=== PATIENT | male | born 1980 | race Caucasian/White ===

== ENCOUNTER 2019-06-12 15:38 | Emergency (ER) | payer BC, SELFPAY ==
[2019-06-12 15:51] VITALS: BP 132/84; PULSE 68; RESP 18; TEMP 37.2; O2SAT 100
--- NOTE | 2019-06-12 16:01 | PC.NURSE ---
jama lamp exam per Ana OUTPATIENT DIETITIAN Tetracaine, flouascene and eye wash administered ny Ana OUTPATIENT DIETITIAN
--- NOTE | 2019-06-12 16:14 | ED.EYEPROB ---
HPI - Eye Problem General Chief complaint: Eye Problems Stated complaint: Left Eye Pain Time Seen by Provider: 06/12/19 16:00 Source: patient Mode of arrival: ambulatory Limitations: no limitations History of Present Illness HPI Narrative: Jacobo Fleming is 38 yo male with no PMH who comes to the [facility] with left eye pain after trying to load scrap wood this morning. He was seen at [place] [facility], stated he thought that there was something left in the eye, here for reevaluation Related Data Allergies Allergy/AdvReac Type Severity Reaction Status Date / Time No Known Allergies Allergy Verified 06/12/19 15:43 Review of Systems Review of Systems: Narrative: CONSTITUTIONAL: Denies fever, chills, sweats. EYES: Denies visual changes, redness, pain in left eye ENT: Denies rhinorrhea, congestion, sore throat, otalgia. CARDIOVASCULAR: Denies chest pain, palpitations, edema. RESPIRATORY: Denies dyspnea, wheezing, cough GASTROINTESTINAL: Denies abdominal pain, nausea, vomiting, diarrhea. GENITOURINARY: Denies dysuria, hematuria, abnormal discharge SKIN: Denies rash or itching. NEUROLOGIC: Denies numbness, or focal weakness. PSYCHIATRIC: Denies anxiety or depression. PMFSH Past Medical History Medical History Anxiety Shoulder fracture, left Surgical History Surgical History History of surgical removal of ganglion cyst Family History Family History Father Hypertension Family history of diabetes mellitus in first degree relative Family history of coronary artery disease Grandparent Family history of lung cancer Other Diabetes mellitus Social History Social History Smoking status: Never smoker Alcohol intake: current Gender identity (if verbalized by the patient): Male Comments At time of signature, I agree with nursing past medical, surgical, social and family history. There is no relevant family history pertinent to the presenting complaint. Exam Narrative: Exam Narrative: GENERAL: This is a well-nourished, well-developed patient, in moderate distress. HEAD: normocephalic, atraumatic. EYES: PERRL. Sclera clear/whiteon R, injected on R. Vision is grossly intact. EARS: External ears normal,. Hearing grossly intact. NOSE: External nose normal THROAT: Mucous membranes moist, posterior pharynx clear. NECK: Neck supple, CARDIOVASCULAR: Regular rate and rhythm without murmurs, gallops, or rubs. RESPIRATORY: Clear to auscultation. Breath sounds equal bilaterally. No wheezes, rales, or rhonchi. GASTROINTESTINAL: Abdomen soft, SKIN: warm, intact with no suspicious lesions or rash, good texture and turgor. NEURO: awake, alert, and oriented to person, place and time. There were no obvious focal neurologic abnormalities. Steady gait EXTREMITIES: Normal range of motion. No edema. BACK: Nontender without deformity or crepitance. Course Vital Signs Vital signs: Vital Signs Temperature 98.9 F 06/12/19 15:51 Pulse Rate 68 06/12/19 15:51 Respiratory Rate 18 06/12/19 15:51 Blood Pressure 132/84 06/12/19 15:51 Pulse Oximetry 100 06/12/19 15:51 Temperature 98.9 F 06/12/19 15:51 Pulse Rate 68 06/12/19 15:51 Respiratory Rate 18 06/12/19 15:51 Blood Pressure 132/84 06/12/19 15:51 Pulse Oximetry 100 06/12/19 15:51 Procedures FB Removal Eye Foreign Body #1: Foreign Body Removal Date: 06/12/19 Foreign Body Removal Time: 16:18 Time Out performed: No Location: eye (L) Topical anesthetic used: tetracaine Foreign body: wood Evidence of corneal penetration: No Technique: irrigation, eye wash bottle and cotton tip swab Procedure performed under: direct visualization with magnification Post-pro
== END 2019-06-12 16:28 | disposition home or self-care (01) ==
PROVIDERS: Emergency Provider Nurse Practitioner
DX: S05.02XA Injury of conjunctiva and corneal abrasion without foreign body, left eye, initial encounter (principal); X58.XXXA Exposure to other specified factors, initial encounter
CPT/HCPCS: 99213; A9270; G0463

== ENCOUNTER 2021-09-26 12:48 | Emergency (ER) | payer OTHER, SELFPAY ==
--- NOTE | ~2021-09-26 | CT_ITS ---
EXAMINATION: CT abdomen pelvis w con DATE: 09/26/2021 14:42 INDICATION: bruising over left flank, hx trauma TECHNIQUE: Computed tomography (CT) of the abdomen and pelvis was performed with 100 mL Omnipaque-350 intravenous contrast. Automated exposure control and iterative reconstruction technique were employe d. The dose-length product was 366.19 mGy-cm. COMPARISON: None. FINDINGS: Lower thorax: Unremarkable Liver: Normal. Biliary/Gallbladder: No bile duct dilation. Pancreas: No mass or duct dilation. Spleen: Normal. Adrenals:No mass. Kidneys: No mass, stone, or hydronephrosis. GI tract: No small or large bowel dilation. Normal appendix. Mesentery/Peritoneum: No ascites, mass, or free air. Retroperitoneum: No mass. Pelvis: Partially distended bladder, marked wall thickening. Otherwise the pelvic organs are within n ormal limits. Soft Tissues: Soft tissues and body wall unremarkable. Bones: No acute osseous finding. IMPRESSION: Atraumatic abdomen and pelvis. Bladder wall thickening as can be seen with outlet obstruction and cys titis. No other acute abdominopelvic process detected. Reviewed, dictated and finalized at location K. IMPRESSION: Atraumatic abdomen and pelvis. Bladder wall thickening as can be seen with outl et obstruction and cystitis. No other acute abdominopelvic process detected.
[2021-09-26 12:50] VITALS: BP 171/83; PULSE 83; RESP 16; TEMP 36.8; O2SAT 99
--- NOTE | 2021-09-26 13:07 | ED.BACK ---
HPI - Back Pain/Injury General Chief Complaint: Back Pain/Injury <Irma Curtis PA-C - Last Filed: 09/26/21 18:23> Stated Complaint: back pain <Irma Curtis PA-C - Last Filed: 09/26/21 18:23> Time Seen by Provider: 09/26/21 12:56 <Irma Curtis PA-C - Last Filed: 09/26/21 18:23> History of Present Illness HPI Narrative: Patient is a 40-year-old male here for evaluation of left lower back pain. States that he fell off a pile last week and struck the left side of his flank on the way down. He has reported pain ever since, that has been increasing in severity. Also notes that he has a bruise over his left flank that has developed over the last week. Has been attempting ibuprofen with no relief of his pain. Denies lightheadedness, syncope, abdominal pain, nausea, vomiting, paresthesias in legs, incontinence or retention of bowel or bladder, saddle anesthesia. <Irma Curtis PA-C - Last Filed: 09/26/21 18:23> Related Data Allergies/Adverse Reactions: Allergies Allergy/AdvReac Type Severity Reaction Status Date / Time No Known Allergies Allergy Verified 06/12/19 15:43 <Imra Curtis PA-C - Last Filed: 09/26/21 18:23> Review of Systems Review of Systems: Gen: Denies fevers or chills Eyes: Denies eye pain or visual change ENT: Denies congestion Respiratory: Denies shortness of breath or cough CV: Denies chest pain or palpitations GI: Denies abdominal pain nausea, emesis or diarrhea denies burning, urgency, frequency or hematuria Musculoskeletal: Reports back pain Neuro: Denies numbness, tingling, weakness or focal weakness Skin: Reports bruising over left flank Except as documented, all other systems reviewed and negative <Irma Curtis PA-C - Last Filed: 09/26/21 18:23> [facility] Past Medical History Medical History: Medical History (Updated 09/26/21 @ 15:02 by rIma Curtis PA-C) Anxiety Shoulder fracture, left <Irma Curtis PA-C - Last Filed: 09/26/21 18:23> Surgical History Surgical History: Surgical History History of surgical removal of ganglion cyst <Irma Curtis PA-C - Last Filed: 09/26/21 18:23> Family History Family History: Family History Father Hypertension Family history of diabetes mellitus in first degree relative Family history of coronary artery disease Grandparent Family history of lung cancer Other Diabetes mellitus <Irma Curtis PA-C - Last Filed: 09/26/21 18:23> Social History Social History: Social History Smoking status: Never smoker Alcohol intake: current Gender identity (if verbalized by the patient): Male <Irma Curtis PA-C - Last Filed: 09/26/21 18:23> Exam Narrative: APPEARANCE: Well appearing, no pain in distress, well-nourished. Head: Normocephalic and atraumatic. EYES: PERRLA/EOMI, conjunctivae clear NOSE: No nasal drainage EARS: External ear normal in appearance THROAT: Oropharynx is clear. Mucous membranes are moist. NECK: Supple. No adenopathy, no masses. RESPIRATORY: Airway patent, respirations nonlabored. Clear to auscultation bilaterally, no rales, rhonchi, wheezing. CARDIOVASCULAR: Regular rate and rhythm without murmurs, rubs, or gallops. ABDOMINAL: Normoactive bowel sounds. Soft, nontender, nondistended. No rebound tenderness or guarding. MUSCULOSKELETAL: No midline tenderness along C, T, or L-spine. Straight leg raise negative. Extremities are warm and well-perfused. Moves all extremities well. No edema. NEURO: Normal speech. No focal neurologic deficits. SKIN: Patient has area of pale ecchymosis over left flank forward to anterior abdomen PSYCHIATRIC: Normal affect/mood. <Irma Curtis PA-C - Last Filed: 09/26/21 18:23> C
[2021-09-26] MEDS: ACETAMINOPHEN 500 MG TABLET 1000 MG PO (13:16)
[2021-09-26 13:54] LABS: Basophils Percent Auto 0.6 % (0.2-1.2); Eosinophils Absolute Auto 0.1 K/mm3 (0-0.3); Eosinophils Percent Auto 1.1 % (0-4.4); Hematocrit 41.8 % (42.0-52.0); Immature Granulocyte Absolute 0.04 K/mm3 (0.00-0.031); Immature Granulocyte Percent A 0.9 % (0-0.5); Lymphocytes Absolute Auto 1.18 K/mm3 (0.9-3.2); Lymphocytes Percent Auto 25.5 % (18.3-44.2); Mean Corpuscular HGB Conc 33.5 g/dl (32-36); Mean Corpuscular Hemoglobin 30.8 pg (26-34); Mean Corpuscular Volume 92.1 fl (80-100); Mean Platelet Volume 9.6 fl (7.4-10.4); Monocytes Absolute Auto 0.5 K/mm3 (0.1-0.6); Neutrophils Absolute Auto 2.9 K/mm3 (1.3-6.7); Neutrophils Percent Auto 61.9 % (45.5-73.1); Platelet Count Result 277 k/mm3 (150-375); Red Blood Count 4.54 M/mm3 (4.6-6.20); Red Cell Distribution Width 13.1 % (11.5-14.5); White Blood Count 4.6 K/mm3 (4.5-10.0)
[2021-09-26 14:06] LABS: Alanine Aminotransferase 46 U/L (6-50); Albumin Level 4.7 g/dL (3.5-5.1); Alkaline Phosphatase 77 U/L (38-126); Anion Gap 6 mmol/L (8-16); Aspartate Amino Transferase 36 U/L (17-59); Bilirubin,Total 0.3 mg/dL (0.2-1.3); Blood Urea Nitrogen 12 mg/dL (9-20); Calcium 9.1 mg/dL (8.4-10.2); Carbon Dioxide 29 mmol/L (22-30); Chloride 104 mmol/L (98-107); Estimated CRCL calculation 93 ml/min; Estimated Glomerular Filt Rate > 60; Glucose 92 mg/dL (65-110); Potassium 4.5 mmol/L (3.4-5.0); Sodium 139 mmol/L (137-145)
== END 2021-09-26 15:20 | disposition home or self-care (01) ==
PROVIDERS: Physician Assistant; Emergency Provider Emergency Medicine
DX: S39.012A Strain of muscle, fascia and tendon of lower back, initial encounter (principal); X58.XXXA Exposure to other specified factors, initial encounter
CPT/HCPCS: 36415; 74177; 80053; 85025; 99284; A9270; Q9967

== ENCOUNTER 2022-06-29 13:48 | Emergency (ER) | payer OTHER, SELFPAY ==
[2022-06-29 14:14] VITALS: BP 138/79; PULSE 75; RESP 18; TEMP 36.8; O2SAT 98
--- NOTE | 2022-06-29 14:46 | ED.URI ---
HPI - URI/Sore Throat General Chief Complaint: Upper Respiratory Infection Stated Complaint: throat discomfort Time Seen by Provider: 06/29/22 14:33 Source: patient Mode of arrival: ambulatory Limitations: no limitations History of Present Illness HPI Narrative: Patient is a 41-year-old male who presents with right sided point tenderness neck pain. States worsens with yawning. Denies any pain with moving head left to right or swallowing. States it has been going on for 4 weeks since he started a new exercise regimen. Denies any swelling, redness, palpable masses, changes in voice. Related Data Allergies Allergy/AdvReac Type Severity Reaction Status Date / Time No Known Allergies Allergy Verified 06/29/22 14:33 Review of Systems Review of Systems: All systems reviewed & are unremarkable except as noted in HPI and below Constitutional: Constitutional: Denies body ache(s), Denies fever(s), Denies headache(s), Denies malaise and Denies weakness Eyes: Eyes: Denies loss of vision ENT: Denies otalgia, Denies headache(s), Denies hoarseness, Denies nasal congestion, Reports neck pain, Denies sinus pain and Denies sore throat Cardiovascular: Cardiovascular: Denies chest pain, Denies irregular heart rhythm and Denies dyspnea Respiratory: Respiratory: Denies cough and Denies dyspnea Gastrointestinal: Gastrointestinal: Denies abdominal pain, Denies melena, Denies hematochezia, Denies diarrhea, Denies nausea and Denies vomiting Musculoskeletal: Musculoskeletal: Denies back pain, Denies myalgias and Denies arthralgias Integumentary/Breasts: Skin/Breast: Denies pruritus and Denies rash Neurologic: Denies headache(s), Denies loss of vision and Denies weakness Psychiatric: Psychiatric: Reports no additional psychiatric complaints [facility] Past Medical History Medical History (Updated 06/29/22 @ 14:50 by Dianna Christine APRN) Anxiety Shoulder fracture, left Surgical History Surgical History History of surgical removal of ganglion cyst Family History Family History Father Hypertension Family history of diabetes mellitus in first degree relative Family history of coronary artery disease Grandparent Family history of lung cancer Other Diabetes mellitus Social History Social History Smoking status: Never smoker Alcohol intake: current Gender identity (if verbalized by the patient): Male Comments At time of signature, agree with nursing past medical, surgical, social and family history. There is no relevant family history pertinent to the presenting complaint. Exam Const: General: cooperative, healthy appearing, comfortable, no acute distress and well nourished Nutritional Appearance: well nourished Orientation/consciousness: patient oriented x3 Limitations: no limitations HENMT: Head: normal to inspection, normocephalic and atraumatic Ears: external ears normal and TM's normal bilaterally Face/Nose/Sinus: Normal external nose present, normal facial exam, sinuses nontender and face symmetric Face and sinus: normal facial exam, sinuses nontender and face symmetric Mouth: Yes Normal oral and palatal mucosa present, Yes lip normal and Yes moist mucous membranes Teeth and gingiva: dentition normal Throat: posterior oropharynx normal, tonsils normal and uvula midline Eyes: General: appearance normal, both eyes and all related structures Alignment and Position: alignment normal and position normal Periorbital: periorbital findings normal Eyelids: eyelids normal Pupils: Equal, round and reactive pupils present Neck: Neck: normal visual inspection, full ROM, no lymphadenopathy, trachea midline and supple Thyroid: thyroid normal Neck images: 1. point tenderness on palpation. no palpable masses noted, no swelling, no redness Chest
== END 2022-06-29 14:53 | disposition home or self-care (01) ==
PROVIDERS: Emergency Provider Nurse Practitioner Family
DX: M54.2 Cervicalgia (principal)
CPT/HCPCS: 99213; G0463

== ENCOUNTER 2024-09-08 17:59 | Emergency (ER) | payer OTHER, SELFPAY ==
--- OUTSIDE RECORDS SUMMARY | 2024-09-08 18:03 | XMS_ITS | Encounter Summary ---
Author Organization [facility] Address [address] [place] [address] Care Team Providers Care Software Tools Engineer Name Role Phone Rachel Stevens MD Primary Care Provider [phone] Yon Guallpa MD Primary Care Provider Encounter Details Date Type Department Care Team (Late st Contact Info) Description 07/15/2024 MyChart Message Enc [facility] Family Medicine [facility] [address] [place] [address] Rachel Stevens MD [address] [place] [address] Anxiety Social History Tobacco Use Types Packs/Day Years Used Date Smoking Tobacco: Former Cigarettes 1 5 1 994 - 1998 Passive Smoke Exposure: Past Smokeless Tobacco: Never Alcohol Use Standard Drinks/Week Comments Yes 0 (1 standard drink = 0.6 oz pur e alcohol) 12-24 beers on the weekends PHQ-2 Answer Date Recorded Patient Health Questionnaire-2 Score 0 01/10/2024 Sex and Gender Information Value Date Recorded Sex Assigned at Not on file Legal Sex Male 9:30 PM CDT Gender Identity Not on file Sexual Orientation Not on file documented as of this encounter Plan of Treatment Upcoming Encounters Date Type Department Care Team (Late Contact Info) Description 12/15/2024 7:00 AM CDT Office Visit [facility] Family & Internal Medicine [address] [address] Yon Guallpa MD [address] [place], [place] [address] [place] [address] documented as of this encounter Visit Diagnoses Not on filedocumented in this encounter Additional Health Concerns Assessment Noted Time PHQ-9 Depression Total Score: 2 12/11/19 24 8:13 AM CDT documented as of this encounter Care Teams Software Tools Engineer Relationship Specialty Start Date End Date Rachel Stevens MD [address] [place] [address] PCP - General FAMILY PRACTICE 12/11/23 08/06/24 [place] [address] [employer] [address] [place] [address] PCP - General INTERNAL MEDICINE 08/07/24 documented as of this encounter
--- OUTSIDE RECORDS SUMMARY | 2024-09-08 18:03 | XMS_ITS | Clinical Summary ---
Author Organization [facility] Address [address] [place] [address] Care Team Providers Care Ambulance Driver Name Role Phone Unavailable Primary Care Provider Unavailabl e Source Comments [facility] [employer],non-owned Affiliates and Associated Physician Practices is amultiple site organization consisting of ambulatory clinics and hospital sitesin [place], [place], [place] and [place]. This disclosure is being madepursuant to the Care Everywhere program and may not contain all information available regarding this patient. Last updated 17.[facility] [employer] Social History Tobacco Use Types Packs/Day Years Used Date Smoking Tobacco: Never Assessed Sex and Gender Information Value Date Recorded Sex Assigned at Not on file Legal Sex Male 9:23 AM CDT Gender Identity Not on file Sexual Orientation Not on file Plan of Treatment Health Maintenance Due Date Last Done Comments LIPID TESTING 1980 HIV SCREENING 10/21/1995 HEPATITIS C SCREENING 10/16/1998 DTAP/TDAP/TD VACCINES (1 - Tdap) 10/21/1999 HEPATITIS B VACCINE (1 of 3 - 19+ 3-dose series) 10/21/1999 COVID-19 VACCINE (1 - 2023-2 5 season) 2023 DEPRESSION SCREENING 03/26/2024 INFLUENZA VACCINE (Season Ended) 2024 ZOSTER VACCINE (1 of 2) 2030 HIB VACCINE Aged Out No longer eligi ble based on patient's age to complete this topic HPV VACCINE Aged Out No longer eligi ble based on patient's age to complete this topic MENINGOCOCCAL (Group B) VACC INE SHARED DECISION-MAKING Aged Out No longer eligibl e based on patient's age to complete this topic MENINGOCOCCAL GROUPS A/C/Y/W VACCINE Aged Out No longer eligible b ased on patient's age to complete this topic PNEUMOCOCCAL VACCINE Aged Out No long er eligible based on patient's age to complete this topic Insurance G[employer]
--- OUTSIDE RECORDS SUMMARY | 2024-09-08 18:03 | XMS_ITS | Encounter Summary ---
Author Organization [facility] Address [address] [place] [address] Care Team Providers Care Promotion Manager Name Role Phone Rachel Stevens MD Primary Care Provider [phone] Yon Guallpa MD Primary Care Provider [phone] Encounter Details Date Type Department Care Team (Late st Contact Info) Description 01/09/2024 AwesomePiecet Message Enc [facility] Family Medicine [facility] [address] [place] [address] Rachel Stevens MD [address] [place] [address] Test results Social History Tobacco Use Types Packs/Day Years [...] on file documented as of this encounter Functional Status * Over the past 2 weeks, how often have you been bothered by any of the following problems? Question Answer Date of Assessment Author Status Little interest or pleasure in doing things Not at all 01/10/2024 8:27 AM CDT Estrellita Saldaña MA Active Feeling down, depressed, or hopeless Not at all 01/10/2024 8:27 AM CDT Estrellita Saldaña MA Active Patient Health Questionnaire-2 Score 0 01/10/2024 8:27 AM CDT Estrellita Saldaña MA Active * If you checked off any problems on this questionnaire so far, Question Answer Date of Assessment Author Status How difficult have these problems made it for you to do your work, take care of things at home, or get along with other people? Not difficult at all 01/10/2024 8:27 AM CDT Estrellita Saldaña MA Active documented as of this encounter Plan of Treatment Upcoming Encounters Date Type Department Care Team (Late st Contact Info) Description 12/15/2024 7:00 AM CDT Office Visit [facility] Family & Internal Medicine [facility] [address] [place] [address] [place] [address] [phone] documented as of this encounter Visit Diagnoses Not on filedocumented in this encounter Additional Health Concerns Assessment Noted Time PHQ-9 Depression Total Score: 2 12/11/19 8:13 AM CDT documented as of this encounter Care Teams Promotion Manager Relationship Specialty Start Date End Date Rachel Stevens MD [address] [place] [address] PCP - General FAMILY PRACTICE 12/11/23 08/06/24 [place] [address] [address] PCP - General INTERNAL MEDICINE 08/07/24 documented as of this encounter
--- OUTSIDE RECORDS SUMMARY | 2024-09-08 18:03 | XMS_ITS | Encounter Summary ---
Author Organization [facility] Address [address] [place] [address] Care Team Providers Care Rubber Cutting Machine Tender Name Role Phone Rachel Stevens MD Primary Care Provider [phone] Yon Guallpa MD Primary Care Provider [phone] Encounter Details Date Type Department Care Team (Late st Contact Info) Description 06/16/2024 MyChart Message Enc [facility] Family Medicine [facility] [address] [place] [address] Rachel Stevens MD [address] [place] [address] Consistent pain Social History Tobacco Use Types Packs/Day Years [...] Description 12/15/2024 7:00 AM CDT Office Visit [facility] Family & Internal Medicine [address] [address] [place] [address] [employer] [address] [place] [address] documented as of this encounter Visit Diagnoses Not on filedocumented in this encounter Additional Health Concerns Assessment Noted Time PHQ-9 Depression Total Score: 2 12/11/19 24 8:13 AM CDT documented as of this encounter Care Teams Rubber Cutting Machine Tender Relationship Specialty Start Date End Date Rachel Stevens MD [address] [place] [address] PCP - General FAMILY PRACTICE 12/11/23 08/06/24 [place] [address] [address] [address] [place] [address] PCP - General INTERNAL MEDICINE 08/07/24 documented as of this encounter
--- OUTSIDE RECORDS SUMMARY | 2024-09-08 18:03 | XMS_ITS | Encounter Summary ---
Author Organization [facility] Address [address] [place] [address] Care Team Providers Care Therapeutic Activities Services Worker Name Role Phone Cecile ZieglerRADHA Primary Care Provider + Rachel Stevens MD Primary Care Provider [phone] Yon Guallpa MD Primary Care Provider [phone] Encounter Details Date Type Department Care Team (Late Contact Info) Description 06/14/2023 MyChart Message Enc [facility] Family & Internal Medicine [facility] [address] [place] [address] Cecile Ziegler [address], [address] [place] [address] Neck Pain Social History Tobacco Use Types Packs/Day Years Used Date Smoking Tobacco: Former Cigarettes 1 5 1 994 - 1998 Passive Smoke Exposure: Past Smokeless Tobacco: Never Alcohol Use Standard Drinks/Week Comments Yes 0 (1 standard drink = 0.6 oz pur e alcohol) 12-24 beers on the weekends PHQ-2 Answer Date Recorded Patient Health Questionnaire-2 Score 0 10/13/2022 Sex and Gender Information Value Date Recorded Sex Assigned at Not on file Legal Sex Male 9:30 PM CDT Gender Identity Not on file Sexual Orientation Not on file documented as of this encounter Plan of Treatment Upcoming Encounters Date Type Department Care Team (Late st Contact Info) Description 12/15/2024 7:00 AM CDT Office Visit [facility] Family & Internal Medicine [facility] [address] [place] [address] [place] [address] [facility] [address] [place] [address] documented as of this encounter Visit Diagnoses Not on filedocumented in this encounter Care Teams Therapeutic Activities Services Worker Relationship Specialty Start Date End Date Cecile Ziegler, [facility]- [address] [facility], [address] [place] [address] PCP - General Nurse Practitioner Family 09/28/2211/24 Rachel Stevens MD [address] [place] [address] PCP - General FAMILY PRACTICE 12/11/23 08/06/24 [place] [address] [facility] [address] [place] [address] PCP - General INTERNAL MEDICINE 08/07/24 documented as of this encounter
--- OUTSIDE RECORDS SUMMARY | 2024-09-08 18:03 | XMS_ITS | Referral Summary ---
Author Organization [address] Address [address] [address] Care Team Providers Care Monument Setter Helper Name Role Phone No, Physician Primary Care Provider [phone] Social History Tobacco Use Types Packs/Day Years Used Date Smoking Tobacco: Never Assessed Personal Safety Answer Date Recorded Getting School Help Needed Not on file 11/05 Sex and Gender Information Value Date Recorded Sex Assigned at Not on file Legal Sex Male 8:25 PM [employer] Gender Identity Not on file Sexual Orientation Not on file Last Filed Vital Signs Vital Sign Reading Time Taken Comments Blood Pressure 95/61 09/14/2014 8:12 AM CDT Pulse 92 09/14/2014 8:12 AM CDT Temperature 36.9 C (98.4 F) 09/14/2014 8:12 AM CDT Respiratory Rate - - Oxygen Saturation 100% 09/14/2014 8:12 AM CDT Inhaled Oxygen Concentration - - Weight 78.9 kg (174 lb) 09/14/2014 8:12 AM CDT Height 175.3 cm (5' 9) 09/14/2014 8:12 AM CDT Body Mass Index 25.7 09/14/2014 8:12 AM CDT Plan of Treatment Not on file Insurance [employer] [place] Care Teams Monument Setter Helper Relationship Specialty Start Date End Date No, Physician PCP - General 11/07/23
--- OUTSIDE RECORDS SUMMARY | 2024-09-08 18:03 | XMS_ITS | Encounter Summary ---
Author Organization [facility] Address [address] [place] [address] Care Team Providers Care Vector Control Assistant Name Role Phone Unavailable Primary Care Provider Unavailabl e Encounter Details Date Type Department Care Team (Late st Contact Info) Description 06/06/[address] [facility] [address] [place] [address] Junito Dewitt MD [address] [place] [address] Social History Tobacco Use Types Packs/Day Years Used Date Smoking Tobacco: Never Assessed Sex and Gender Information Value Date Recorded Sex Assigned at Not on file Legal Sex Male 9:23 AM CDT Gender Identity Not on file Sexual Orientation Not on file documented as of this encounter Plan of Treatment Not on file documented as of this encounter Procedures Procedure Name Priority Date/Time Associated Diagnosis Comments DERMATOPATHOLOGY Routine 06/04/2019 12:0 0 AM CDT documented in this encounter Results * DERMATOPATHOLOGY (06/04/2019 12:00 AM CDT) Case Report Dermatopathology Report Case: [id number] Authorizing Provider: Junito Dewitt MD Collected: 06/04/2019 12:00 AM Ordering Location: [facility] Received: 06/06/2019 09:40 AM Pathologist: Poornima Handy MD Specimen: Skin, right upper back 0 4:01 PM CDT DERMATOPATHOLOGY LABORATORY Final Diagnosis Specimen A. 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 Path# [id number] 0 4:01 PM T DERMATOPATHOLOGY LABORATORY Gross Description Specimen A: Received is one formalin filled container labeled with the patient's name and designated right upper back. The specimen consists of a shave biopsy measuring 6x4x1 mm. Jar 0. 0 4:01 PM T DERMATOPATHOLOGY LABORATORY Microscopic Description Specimen A. SKIN, right upper back: This is a junctional nevus. There is melanin pigment in the stratum corneum. There is architectural disorder characterized by a lentiginous proliferation of melanocytes between irregular nests of cells along the dermal-epidermal junction. There is underlying fibroplasia of the papillary dermis. (Junctional Arnoldo's Nevus or Junctional Dysplastic Nevus) This lesion is present at the margin of the specimen. COMMENT: The histopathologic findings of the portion of the lesion sampled are reassuring. However, as this lesion is present at the margins of the specimen, clinicopathological correlation is recommended as to the nature of the remaining lesion. 0 4:01 PM T DERMATOPATHOLOGY LABORATORY Disclaimer An external and internal positive and negative controls are appropriate for the histochemical, immunohistochemical and immunofluorescence stain(s) in this case (if any), except where stated explicitly. The performance characteristics of the stain(s) cited in this report were developed and its performance characteristic determined by the Dermatopathology Laboratory at [facility], directed by Dr. Chan Oneil. These tests need not be, and therefore are not, approved by the [place] Food and Drug Administration. The tests are used for clinical purposes. Billing Codes Specimen Charges Stain Charges 19253 1 0 4:01 PM CDT DERMATOPATHOLOGY LABORATORY Embedded Images 0 4:01 PM CDT DERMATOPATHOLOGY LABORATORY Pathology/Cytolog y TISSUE SPECIMEN FROM SKIN / Unknown 06/04/2019 06/06/2019 9:40 AM CDT us Junito Dewitt MD LAB - PATHOLOGY/CYTOLOGY ORDER TEJA Final Result DERMATOPATHOLOGY LABORATORY [facility] - Department of Dermatology [address] [facility], 5th Floor Lab [address] [phone] documented in this encounter Visit Diagnoses Not on filedocumented in this encounter
--- OUTSIDE RECORDS SUMMARY | 2024-09-08 18:03 | XMS_ITS | Encounter Summary ---
Author Organization [facility] Address [address] [place] [address] Care Team Providers Care Last Waxer Name Role Phone Rachel Stevens MD Primary Care Provider [phone] Yon Guallpa MD Primary Care Provider [phone] Encounter Details Date Type Department Care Team (Late st Contact Info) Description 01/14/2024 MyChart Message Enc [facility] Family Medicine [facility] [address] [place] [address] Rachel Stevens MD [address] [place] [address] Test Social History Tobacco Use Types Packs/Day Years [...] Description 12/15/2024 7:00 AM CDT Office Visit [facility] Family & Internal Medicine [address] [address] Yon Guallpa MD [address] [place], [place] [address] [place] [address] documented as of this encounter Visit Diagnoses Not on filedocumented in this encounter Additional Health Concerns Assessment Noted Time PHQ-9 Depression Total Score: 2 12/11/19 24 8:13 AM CDT documented as of this encounter Care Teams Last Waxer Relationship Specialty Start Date End Date Rachel Stevens MD [address] [place] [address] PCP - General FAMILY PRACTICE 12/11/23 08/06/24 [place] [address] [facility] [address] [place] [address] PCP - General INTERNAL MEDICINE 08/07/24 documented as of this encounter
--- OUTSIDE RECORDS SUMMARY | 2024-09-08 18:03 | XMS_ITS | Encounter Summary ---
Author Organization [facility] Address [address] [place] [address] Care Team Providers Care Biodiesel Production Associate Name Role Phone Cecile Ziegler Primary Care Provider + Rachel Stevens MD Primary Care Provider [phone] Yon Guallpa MD Primary Care Provider [phone] Reason for Visit * Reason Onset Date Comments Follow Up Call 07/11/2023 Encounter Details Date Type Department Care Team (Late st Contact Info) Description 07/11/2023 [employer] Message Enc [facility] Family & Internal Medicine [address] [address] Cecile Ziegler [facility] [id number] [place] [address] Mri Social History Tobacco Use Types Packs/Day Years Used Date Smoking Tobacco: Former Cigarettes 1 5 4 - 1998 Passive Smoke Exposure: Past Smokeless [...] on file documented as of this encounter Progress Notes * LIZA Merchant - 07/16/2023 11:10 AM CDT Thank you * Tali Reyes RN - 07/16/2023 10:43 AM CDT Referral entered as urgent to neurosurgeon with notation to make sure provider takes patient insurance. * Estrellita Gaspar - 07/13/2023 3:14 PM CDT Jacobo calling very upset. Asking to speak to his provider or her supervising provider. Jacobo states he is wanting to discuss the MRI result as he feels some things were missed. Asking for an orthopedic referral or something so he does not have to go back through pain for the weekend. Jacobo was very strong willed on the phone call and speaking how not client experience manager on site to help. I told him I was trying to help him but he would have to give me his so I could pull him up in the system. I also informed Jacobo that both providers and nurse was with patience at the moment but I would get a message back to them. He said I only need less than five minutes to ask my questions and I want to talk to my provider. He did settle down after speaking to him and I told him I would get the message back to the provider to call. CB # [phone] * Tali Reyes RN - 07/13/2023 2:11 PM CDT FYI * Tali Reyes RN - 07/12/2023 9:24 AM CDT Please review imaging results from 07/09/2023 * Jennifer Lai MA - 07/11/2023 3:09 PM CDT Spoke with patient and informed him that we will call him when the provider reads his results. documented in this encounter Plan of Treatment Upcoming Encounters Date Type Department Care Team (Late st Contact Info) Description 12/15/2024 7:00 AM CDT Office Visit [facility] Family & Internal Medicine [facility] [address] [place] [phone] [place] [address] [address] documented as of this encounter Visit Diagnoses Not on filedocumented in this encounter Care Teams Biodiesel Production Associate Relationship Specialty Start Date End Date Cecile Ziegler, [facility]- [address] [facility], [address] [address] PCP - General Nurse Practitioner Family 09/28/2211/24 Rachel Stevens MD [address] [place] [address] PCP - General FAMILY PRACTICE 12/11/23 08/06/24 [place] [address] [facility] [address] [place] [address] PCP - General INTERNAL MEDICINE 08/07/24 documented as of this encounter
--- OUTSIDE RECORDS SUMMARY | 2024-09-08 18:03 | XMS_ITS | Clinical Summary ---
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
[2024-09-08 18:17] VITALS: BP 143/88; PULSE 71; RESP 18; TEMP 36.7; O2SAT 100
[2024-09-08] MEDS: DACRIOSE EYE IRRIGATION 118 ML BOTTLE LEFT EYE (18:22)
[2024-09-08] MEDS: TETRACAINE HCL 0.5% OPHTH SOLN 4 ML BTL LEFT EYE (18:22)
[2024-09-08] MEDS: FLUORESCEIN SOD 1 MG/STRIP LEFT EYE (18:23)
--- NOTE | 2024-09-08 18:27 | ED_ITS ---
HPI - Eye Problem General Chief complaint: Eye Problems Stated complaint: Something in eye Time Seen by Provider: 09/08/24 18:20 Source: patient and RN notes reviewed Mode of arrival: ambulatory Limitations: no limitations History of Present Illness HPI Narrative: 43-year-old male presents Express Care complaining of left eye injury. Patient says approximately 3 hours ago he was cutting wood with a circular saw without wearing goggles when a piece of wood came back in struck him in the left eye. Patient believes he has a [place] when his left eye he feels a foreign body sensation in the left eye. Denies any other injuries or any problems with his right eye. Patient reports having photophobia and blurry vision on the left. Patient says he can not see out is left but at times it is blurry. Patient tried the washed his eye out but states the foreign body sensation is still present. Patient denies any nausea, vomiting, headaches, or eye pain. Related Data Allergies Allergy/AdvReac Type Severity Reaction Status Date / Time Penicillins Allergy Mild Other Verified 09/08/24 18:18 Review of Systems Review of Systems: CONSTITUTIONAL: Denies fever, chills, or sweats. EYES: Denies visual changes, redness, or discharge. Positive for photophobia, blurry vision, eye redness, foreign body sensation. ENT: Denies rhinorrhea, congestion, sore throat, or otalgia. CARDIOVASCULAR: Denies chest pain, palpitations, or edema. RESPIRATORY: Denies cough or dyspnea. GASTROINTESTINAL: Denies abdominal pain, nausea, vomiting, or diarrhea. GENITOURINARY: Denies dysuria or hematuria. SKIN: Denies rash or itching. MUSCULOSKELETAL: Denies back pain, joint pain, or myalgia. NEUROLOGIC: Denies headache, numbness, or weakness. PSYCHIATRIC: Denies anxiety or depression. All other systems reviewed are negative, except as documented in HPI. [facility] Past Medical History Medical History (Updated 09/08/24 @ 18:50 by Severiano Booker APRN) Anxiety Shoulder fracture, left Surgical History Surgical History History of surgical removal of ganglion cyst Family History Family History Father Hypertension Family history of diabetes mellitus in first degree relative Family history of coronary artery disease Grandparent Family history of lung cancer Other Diabetes mellitus Social History Social History Smoking status: Never smoker Alcohol intake: current Gender identity (if verbalized by the patient): Male Comments At the time of my signature, I reviewed and agree with the nursing past medical, surgical, social, and family history. There is no relevant family history pertinent to the patient complaint. Exam Narrative: GENERAL: This is a well-nourished, well-developed adult, in no apparent distres s. They are non ill-appearing, nontoxic appearing. HEAD: normocephalic, atraumatic. EYES: Sclera clear/white. Left Conjunctiva injected. Right conjunctiva normal. Vision is grossly intact. Extraocular movements intact and nontender. Pupils PERRLA. No peak or eccentric pupils. No hyphema or subconjunctival hemorrhage present. Upper and lower eyelids normal. No ciliary flush. No foreign body visualized. Left eyelid eversion: No foreign body present. Wood's lamp exam with fluorescent stain of left eye: Corneal abrasion present to medial upper corner of left eye. No scleral or corneal laceration. No vitreous humor present. No foreign body visualized on Wood's lamp exam. Left eye is irrigated. EARS: External ears normal, NOSE: External nose normal THROAT: Mucous membranes moist, NECK: Neck supple, CARDIOVASCULAR: Regular rate and rhythm RESPIRATORY: Respiratory rate normal, respiratory effort nonlabored, no respiratory distress SKIN: warm, Dry, intact with no suspicious lesions or rash, good texture and turgor. NEURO: awake, alert, and oriented to person, place and time. There were no obvious focal neurologic abnormalities. EXTREMITIES: No joint tenderness, effusion, or edema noted. Course Course Emergency Course: Portions of this record may have been created with voice recognition software Level of Care: Express Care Visit Vital Signs Vital signs: Vital Signs Temperature 98.0 F 09/08/24 18:17 Pulse Rate 71 09/08/24 18:17 Respiratory Rate 18 09/08/24 18:17 Blood Pressure 143/88 H 09/08/24 18:17 Pulse Oximetry 100 09/08/24 18:17 Oxygen Delivery Room Air 09/08/24 18:17 Temperature 98.0 F 09/08/24 18:17 Pulse Rate 71 09/08/24 18:17 Respiratory Rate 18 09/08/24 18:17 Blood Pressure 143/88 H 09/08/24 18:17 Pulse Oximetry 100 09/08/24 18:17 Oxygen Delivery Room Air 09/08/24 18:17 Reviewed MDM - Eye Problem MDM Narrative Medical decision making narrative: Patient has corneal abrasion present the left eye. No Evidence of globe rupture or penetrating eye trauma. No foreign body is visualized on exam. Patient's left eye is irrigated today. Patient's visual acuity is affected however patient says he can see most the time but reports his vision is blurry at times. Will prescribe erythromycin ointment as needed for infection prevention. Discussed physical exam findings. Advised supportive measures and signs/symptoms to go to the ER. Pt is appropriate for outpt treatment and f/u. Differential Diagnosis Differential diagnosis: Likely corneal abrasion, hyphema, corneal ulcer and ruptured globe Critical Care Time Critical Care Time Critical Care Time: No Discharge Plan Discharge Clinical Impression: Abrasion, corneal Patient Disposition: Home Condition: Stable Instructions: Antibiotic Form, Corneal Abrasion (ED) Additional Instructions: Corneal abrasions will heal in 1-2 days. Larger ones may take longer. There was no foreign body in your eye upon exam. Please use antibiotic eyedrops as directed to prevent infection. You can wear sunglasses or stay in low light to avoid light sensitivity. Do not touch or rub your eye. Use over the counter lubricating eye drops as needed for irritation Do not wear contact lenses until issue is resolved You may take Tylenol or ibuprofen for pain Follow-up with PCP or building contractor if condition is not improving in 2-3days. If developed develops worsening vision changes, loss of vision, eye pain, discharge, nausea, vomiting, fevers, abnormal pupil sizes, or any other concerns please go to the ER immediately. [facility] [phone] [facility] [phone] [facility] [phone] [facility] [phone] Patient Language: Lithuanian Prescriptions: New erythromycin 5 mg/gram (0.5 %) ointment 1.25 cm LEFT EYE QID 5 Days Qty: 3.5 0RF Follow-up/Referrals: UNKNOWN,DOCTOR [Primary Care Provider] - Time of Disposition: 18:50
== END 2024-09-08 18:54 | disposition home or self-care (01) ==
DX: S05.02XA Injury of conjunctiva and corneal abrasion without foreign body, left eye, initial encounter (principal); W20.8XXA Other cause of strike by thrown, projected or falling object, initial encounter
CPT/HCPCS: 99213; A9270; G0463